=== PATIENT | male | born 1955 | race Caucasian/White ===

== ENCOUNTER → 2017-11-09 08:59 | Outpatient (CLI) | payer MEDICAID, SELFPAY ==
--- NOTE | 2017-11-09 09:06 | RAD_ITS ---
PROCEDURE: Fluoroscopic guided Hip Injection DATE: November 09, 2017. INDICATION: Male, 62 years old. Right hip pain. PHYSICIAN: Daniele Avalos M.D. MEDICATIONS: 80 mg of Kenalog and 3 cc of 0.5% marcaine . 2% lidocaine administered subcutaneously for local anesthesia. ACCESS SITE: Right hip. NEEDLE: 22-gauge spinal needle. FLUOROSCOPY TIME (if supplied): (46 seconds) minutes/seconds FINDINGS: The risks, benefits, and alternatives to the procedure were explained to the patient. The specific risks of bleeding, infection, and neurovascular injury were detailed and accepted. Witnessed informed consent was obtained. A 22-gauge spinal needle was positioned under radiographic fluoroscopic localization. Approximately 2 cc of Isovue-300 instilled for localization purposes. Medication was then injected. The patient tolerated the procedure well without any immediate complications. The patient was placed supine with head elevated and returned to the floor in stable condition. RAD/Inj/Asp Govind Jt Should/Hip/Knee IMPRESSION: 1. Successful fluoroscopic guided hip injection. Electronically Signed: Daniele Avalos MD at 10:31 EDT Tel [phone], Service support ,
== END ==
PROVIDERS: Family Provider Family Medicine; PCP Family Medicine; Visit Provider Orthopaedic Surgery
DX: M16.11 Unilateral primary osteoarthritis, right hip (principal)
CPT/HCPCS: 20610; 77002; Q9967

== ENCOUNTER 2017-12-22 09:53 | Emergency (ER) | payer MEDICAID, SELFPAY ==
[2017-12-22 09:54] VITALS: BP 131/84; PULSE 116; RESP 18; TEMP 36.8; O2SAT 96; BMI 29.6
[2017-12-22 10:27] VITALS: O2SAT 95
[2017-12-22 10:29] VITALS: BP 143/97; PULSE 109; RESP 16; O2SAT 97
[2017-12-22] MEDS: Diphth,Pertuss(Acell),Tet Vac 0.5 ML Vial IM (10:43)
[2017-12-22] MEDS: Lidocaine/Epi/Tetracaine 50 ML 1 APPLIC TOPICAL (10:44)
--- NOTE | 2017-12-22 12:49 | ED.DCSUM_ITS ---
- ER Visit Summary Date of Service: 12/22/17 Chief Complaint: Tripped and fell down multiple steps causing a left eyebrow laceration History of Present Illness: The patient is a 62 M history of hypertension. Patient denies being on any blood thinners. He was going down steps tripped over his dog and fell down approximately 8 steps. No LOC. No neck pain. Left eyebrow facial laceration. Said he is sore all over but denies any other significant complaints. No chest, abdominal or back pain. Physical Examination: Middle-aged male. No acute distress. Laceration and tissue avulsion left lateral eyebrow. Vital signs are stable and afebrile. H EENT exam pupils round reactive light. Extra motions are intact. He has a 3 cm laceration over his left eyebrow and also tissue avulsion laterally. There is mild bleeding. Mild bruising. Extra motions are intact. There is no hematomas or scalp other facial trauma. Neck nontender full range of motion. Trachea midline. Lungs clear to auscultation bilaterally. All nontender. Heart regular rate and rhythm. Abdomen soft nontender no signs of trauma. No peritoneal signs. Pelvic girdle intact. Having all 4 extremities. Neurovascularly intact. No deformities. Nontender. Back exam no cervical, thoracic or lumbar spine tenderness. No bruising. Neurologically is awake and alert with no focal motor deficits. Test Results: None Emergency Department Course and Treatment: Laceration repair left eyebrow. Patient has a 3 cm laceration left eyebrow. Below it there is a loss of tissue. There is mild oozing. Locally anesthetized with let and then subcu lidocaine. Wound was washed with Shur-Clens irrigated with saline and explored. Closed using 4 simple interrupted 5-0 Ethilon sutures. Proper hemostasis wound closure was obtained. Patient was instructed sutures out in 1 week and wound care. Tetanus was updated. Treatment Plan: Wound care. Suture removal 1 week. Disposition: Discharge Impression: Tripped and fell down 8 steps Closed head injury Left eyebrow laceration 3 cm ER repair This note was generated with [employer] dictation software. It may contain incorrect words, spelling, and punctuation that were not noted in review of the chart prior to signing ED Disposition - Plan for ED Patient: Chief Complaint: Fall Referrals: Servando Lazaro MD [Primary Care Provider] -
--- NOTE | 2017-12-22 12:49 | ED.DEP ---
ED Disposition - Plan for ED Patient: Disposition: Home or Assisted Living Chief Complaint: Fall Instructions: ED Laceration All, ED Head Injury Closed Referrals: Servando Lazaro MD [Primary Care Provider] - 7 Days for suture removal Additional Instructions: Tylenol and Motrin for pain. Keep the wound clean and apply antibiotic ointment twice daily. Suture removal in 1 week. Follow head injury instructions
== END 2017-12-22 12:55 | disposition home or self-care (01) ==
PROVIDERS: Emergency Provider Emergency Medicine; Family Provider Family Medicine; PCP Family Medicine
DX: S01.112A Laceration without foreign body of left eyelid and periocular area, initial encounter (principal); W10.9XXA Fall (on) (from) unspecified stairs and steps, initial encounter; Y93.9 Activity, unspecified; Y92.9 Unspecified place or not applicable; I10 Essential (primary) hypertension; Z79.899 Other long term (current) drug therapy; Z72.0 Tobacco use
CPT/HCPCS: 12013; 90471; 90715; 99283